=== PATIENT | female | born 1955 | race Caucasian/White ===

== ENCOUNTER 2017-07-08 10:44 | Emergency (ER) | payer SELFPAY ==
--- NOTE | 2017-07-08 12:01 | ER Document Report ---
HPI - HPI Patient complains to provider of: LEG PAIN Onset: Other Onset/Duration: Intermittent Quality of pain: Achy Severity: Moderate Pain Level: 4 Context: Patient states she is out of her medication for restless leg syndrome since Friday. Past medical history is significant for RLS, and fibromyalgia. She is new to the area and has not had a chance to establish with a primary care physician. Associated Symptoms: Headache Exacerbated by: Denies Relieved by: Denies Similar symptoms previously: Yes Recently seen / treated by doctor: No - ROS ROS below otherwise negative: Yes Systems Reviewed and Negative: Yes All other systems reviewed and negative - CONSTITUTIONAL Constitutional: DENIES: Fever - EENT EENT: DENIES: Congestion - NEURO Neurology: REPORTS: Headache - CARDIOVASCULAR Cardiovascular: DENIES: Chest pain - RESPIRATORY Respiratory: DENIES: Trouble Breathing - GASTROINTESTINAL Gastrointestinal: DENIES: Abdominal Pain - URINARY Urinary: DENIES: Dysuria - REPRODUCTIVE LMP: menopausal - MUSCULOSKELETAL Musculoskeletal: REPORTS: Extremity pain - DERM Skin Color: Normal Past Medical History - General Information source: Patient - Social History Smoking Status: Never Smoker Chew tobacco use (# tins/day): No Frequency of alcohol use: None Drug Abuse: [place] Lives with: Family Family History: Reviewed & Not Pertinent Patient has suicidal ideation: No Patient has homicidal ideation: No Musculoskeltal Medical History: Reports Hx Fibromyalgia, Reports Hx Restless Leg Syndrome Past Surgical History: Reports: Hx Section, Hx Gynecologic Surgery, Hx Hysterectomy Vertical Provider Document - CONSTITUTIONAL Agree With Documented VS: Yes Exam Limitations: No Limitations General Appearance: WD/WN, No Apparent Distress - INFECTION CONTROL TRAVEL OUTSIDE OF THE [place] IN LAST 30 DAYS: No - HEENT HEENT: Atraumatic, Normocephalic - RESPIRATORY Respiratory: Breath Sounds Normal, No Respiratory Distress O2 Sat by Pulse Oximetry: 97 - CARDIOVASCULAR Cardiovascular: Regular Rate, Regular Rhythm - GI/ABDOMEN Gastrointestinal: Abdomen Soft, Abdomen Non-Tender, Normal Bowel Sounds - MUSCULOSKELETAL/EXTREMETIES Musculoskeletal/Extremeties: TAM [place] - NEURO Level of Consciousness: Awake, Alert, Appropriate - DERM Integumentary: Warm, Dry Course - Re-evaluation Re-evalutation: 07/08/17 12:02 Ropinirole prescription was last filled [facility] in [place]. Same medications were prescribed per the label. - Vital Signs Vital signs: Temp Pulse Resp BP Pulse Ox 99.1 F 81 16 136/70 H 97 07/08/17 10:48 07/08/17 10:48 07/08/17 10:48 07/08/17 10:48 07/08/17 10:48 Discharge - Discharge Clinical Impression: Restless leg syndrome, Medication refill Condition: Good Disposition: HOME, SELF-CARE Additional Instructions: Take ropinirole daily as prescribed [facility] and healthcare needs, the information is on your discharge paperwork Return as needed Prescriptions: Ropinirole HCl 2 mg PO TID #90 tablet
[2017-07-08 12:21] VITALS: BP 121/71
== END 2017-07-08 12:11 | disposition home or self-care (01) ==
LOC: ER 10:44
DX: Z76.0 Encounter for issue of repeat prescription (principal); G25.81 Restless legs syndrome; M79.7 Fibromyalgia
CPT/HCPCS: 99283